=== PATIENT | male | born 1950 | race Caucasian/White ===

== ENCOUNTER → 2017-12-31 | Outpatient (CLI) | payer BC ==
[2014-11-22 16:20] VITALS: BP 126/83
--- NOTE | 2017-12-31 14:41 | MRI ---
MRI lumbar spine without contrast Indication: Low back pain with numbness in the right lower extremity Comparison: None Technique: Multiplanar multi sequence MR images of the lumbar spine were obtained without contrast. Findings: Evaluation of the paravertebral soft tissues demonstrates bilateral renal cysts and a left renal pelvis stone measuring 2.1 x 1.1 cm (image 12, series 701). There is straightening of the lumbar lordosis with multilevel degenerative changes, discussed further below. There is heterogeneously decreased T1 hypointense marrow signal, suggesting marrow reconversi on. No suspicious focal marrow lesion is identified. There is a small hemangioma within the T12 verte bral body. Modic endplate changes are noted throughout the lumbar spine. The conus terminates at L1. The cauda equina is grossly unremarkable aside from nerve root crowding at L2-3 related to spinal can al stenosis. T12-L1: Unremarkable L1-2: There is mild broad-based posterior disc bulge and bilateral facet arthropathy, without signifi cant spinal canal or neural foraminal narrowing. L2-3: There is moderate circumferential disc bulge with superimposed left paracentral component and b ilateral facet arthropathy resulting in moderate left and mild right neural foraminal narrowing and s evere spinal canal narrowing. L3-4: There is moderate circumferential disc osteophyte complex with superimposed left paracentral/la teral recess component and bilateral facet arthropathy resulting in [id number] left and mild ri ght neural foraminal narrowing and mild spinal canal narrowing. L4-5: There is moderate circumferential disc osteophyte complex and bilateral facet arthropathy resul ting in moderate right and mild left neural foraminal narrowing, without significant spinal canal nilesh rowing. L5-S1: There is broad-based posterior disc and osteophyte complex and marked bilateral facet arthropa thy resulting in moderate to severe bilateral neural foraminal narrowing, left greater than right, an d minimal spinal canal narrowing. Impression: Marked multilevel lumbar spondylosis with multifocal spinal canal and neural foraminal narrowing as a sara, including severe spinal canal narrowing at L2-3 with crowding of the cauda equina nerve roots. 2 cm left renal pelvis stone. Reported By:
== END | disposition home or self-care (01) | DRG 552 ==
LOC: RAD 09:40
PROVIDERS: ATTEND Internal Medicine
DX: M54.17 Radiculopathy, lumbosacral region (principal)
CPT/HCPCS: 72148